=== PATIENT | female | born 1975 | race Caucasian/White ===

== ENCOUNTER 2017-05-16 15:43 | Emergency (ER) | payer OTHER ==
[2017-05-16 16:31] VITALS: BP 119/78; PULSE 101; RESP 20; TEMP 98.4; O2SAT 97
--- NOTE | 2017-05-16 16:31 | C.PDOC ---
History Of Present Illness 42 year old female presents to the emergency room complaining of chills since Thursday with associated cough and runny nose. Patient states her eyes fell heavy . Did not receive a flu shot this season. Denies any fever, shortness of breath , or chest pain. PMD: Clinic in [place] Time Seen by Provider: 05/16/17 16:26 Chief Complaint (Nursing): Flu-like Symptoms History Per: Patient History/Exam Limitations: no limitations Onset/Duration Of Symptoms: Days (x6) Current Symptoms Are (Timing): Still Present Past Medical History Reviewed: Historical Data, Nursing Documentation, Vital Signs Vital Signs: Last Vital Signs Temp 98.4 F 05/16/17 16:28 Pulse 101 H 05/16/17 16:28 Resp 20 05/16/17 16:28 BP 119/78 05/16/17 16:28 Pulse Ox 97 05/16/17 16:28 - Medical History PMH: No Chronic Diseases Surgical History: (x 2) Family History: States: Diabetes - Social History Hx Tobacco Use: Yes Hx Alcohol Use: Yes Hx Substance Use: No - Immunization History Hx Tetanus Toxoid Vaccination: No Hx Influenza Vaccination: No Hx Pneumococcal Vaccination: No Review Of Systems Except As Marked, All Systems Reviewed And Found Negative. Constitutional: Positive for: Chills. Negative for: Fever ENT: Positive for: Nose Discharge Cardiovascular: Negative for: Chest Pain Respiratory: Positive for: Cough. Negative for: Shortness of Breath Physical Exam - Physical Exam Appears: Non-toxic, No Acute Distress Skin: Normal Color, Warm, Dry Head: Atraumatic, Normacephalic Eye(s): bilateral: Normal Inspection, PERRL, EOMI Ear(s): Bilateral: Normal Oral Mucosa: Moist Neck: Normal ROM, Supple Chest: Symmetrical Cardiovascular: Rhythm Regular, No Murmur Respiratory: Normal Breath Sounds, No Accessory Muscle Use, Other (lungs clear to auscultation) Neurological/Psych: Oriented x3, Normal Speech Medical Decision Making Medical Decision Making: Initial Impression: Bronchitis Time: 16:31 Plan: Patient is medically stable and requires no further treatment in the ER. Will d/ c with Claritin and Robitussin. Counseled regarding diagnosis and the need for follow up. Disposition Counseled Patient/Family Regarding: Diagnosis, Need For Followup, Rx Given, Smoking Cessation - Disposition Disposition: HOME/ ROUTINE Disposition Time: 16:29 Condition: STABLE Additional Instructions: Ms. Mckeon, thank you for letting us take care of you today. Return to the ER if your symptoms worsen, or if any problems. Take the medication listed below as prescribed. Follow up with your doctor this week for a re-evaluation. Quit smoking--it's very bad for your health. Prescriptions: guaiFENesin [guaifENESIN] 2 tsp PO Q6 PRN #6 oz PRN Reason: Cough Loratadine [Claritin] 1 tab PO DAILY #14 tab Instructions: How to Stop Smoking (ED), Acute Bronchitis (ED) Forms: [employer] (Wolof) Print Language: SLOVENIAN - POA Present On Arrival: None - Clinical Impression Clinical Impression: Bronchitis - Scribe Statement The provider has reviewed the documentation as recorded by the Scribe (Claudia Schneider) Provider Attestation: All medical record entries made by the Scribe were at my direction and personally dictated by me. I have reviewed the chart and agree that the record accurately reflects my personal performance of the history, physical exam, medical decision making, and the department course for this patient. I have also personally directed, reviewed, and agree with the discharge instructions and disposition.
== END 2017-05-16 16:44 | disposition home or self-care (01) ==
LOC: C.ER 15:43
DX: J40 Bronchitis, not specified as acute or chronic (principal)

== ENCOUNTER 2017-10-18 15:32 | Emergency (ER) | payer OTHER ==
[2017-10-18 15:42] VITALS: BP 143/83; PULSE 92; RESP 18; TEMP 98.9; O2SAT 98
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
== END 2017-10-18 17:36 | disposition home or self-care (01) ==
LOC: C.ER 15:32
DX: S60.221A Contusion of right hand, initial encounter (principal); Y09 Assault by unspecified means

== ENCOUNTER 2017-11-14 15:07 | Emergency (ER) | payer OTHER ==
[2017-11-14 15:33] VITALS: BP 125/78; PULSE 81; RESP 16; TEMP 98; O2SAT 99
--- NOTE | 2017-11-14 15:38 | C.PDOC ---
History Of Present Illness 42 year old female presents to the emergency department status-post falling and hitting her right middle finger and nail. Patient reports that she had an acrylic nail which slightly lifted off. Time Seen by Provider: 11/14/17 15:11 Chief Complaint (Nursing): Finger,Hand,&Wrist History Per: Patient History/Exam Limitations: no limitations Onset/Duration Of Symptoms: Hrs Current Symptoms Are (Timing): Still Present Past Medical History Reviewed: Historical Data, Nursing Documentation, Vital Signs Vital Signs: Last Vital Signs Temp 98 F 11/14/17 15:21 Pulse 81 11/14/17 15:21 Resp 16 11/14/17 15:21 BP 125/78 11/14/17 15:21 Pulse Ox 99 11/14/17 16:13 - Medical History PMH: No Chronic Diseases Surgical History: (x 2) Family History: States: Diabetes - Social History Hx Tobacco Use: Yes Hx Alcohol Use: Yes Hx Substance Use: No - Immunization History Hx Tetanus Toxoid Vaccination: No Hx Influenza Vaccination: No Hx Pneumococcal Vaccination: No Review Of Systems Skin: Positive for: Other (nail avulsion right middle finger) Physical Exam - Physical Exam Appears: Non-toxic, No Acute Distress Skin: Warm, Dry, Other (partial avulsion to the medial corner of proximal nail plate and cuticle of right third finger) Head: Atraumatic, Normacephalic Eye(s): bilateral: Normal Inspection Neck: Normal, Supple Chest: Symmetrical, No Tenderness Extremity: Normal ROM (at right third finger), No Tenderness, No Deformity, No Swelling Neurological/Psych: Oriented x3, Normal Speech ED Course And Treatment O2 Sat by Pulse Oximetry: 99 (RA) Pulse Ox Interpretation: Normal Procedure: Wound Repair - Performed by Performed by: Mid-level Provider - Indications Indication(s):: Avulsion - Location Location:: Right Finger:: Right, Middle - Wound repair method Talia:: Tissue glue (Dermabond applied at cuticle and proximal nail plate. ) - Patient tolerated procedure Patient Tolerated Procedure:: Well Medical Decision Making Medical Decision Making: Patient with injury right 3rd digit. Xray ordered and reviewed shows no fracture. Dermabond applied. Patient instructed on wound care. Disposition Counseled Patient/Family Regarding: Diagnosis, Need For Followup - Disposition Disposition: HOME/ ROUTINE Disposition Time: 15:37 Condition: STABLE Additional Instructions: Keep area clean and dry. May wash gently with soap and water. Skin glue was used to close your wound, do not apply ointment to area as it may dissolve glue. 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 - Scribe Statement The provider has reviewed the documentation as recorded by the Scribe (Cem Sosa) All medical record entries made by the Scribe were at my direction and personally dictated by me. I have reviewed the chart and agree that the record accurately reflects my personal performance of the history, physical exam, medical decision making, and the department course for this patient. I have also personally directed, reviewed, and agree with the discharge instructions and disposition.
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
== END 2017-11-14 15:47 | disposition home or self-care (01) ==
LOC: C.ER 15:07
DX: S61.302A Unspecified open wound of right middle finger with damage to nail, initial encounter (principal); W19.XXXA Unspecified fall, initial encounter